=== PATIENT | male | born 1985 | race Caucasian/White ===

== ENCOUNTER 2016-12-03 16:30 | Emergency (ER) | payer OTHER ==
[~2016-12-03] VITALS: Ht 175.3 cm; Wt 106.5 kg
== END 2016-12-03 16:50 | disposition short-term general hospital (02) ==
LOC: ER 16:30
DX: S68.126A Partial traumatic metacarpophalangeal amputation of right little finger, initial encounter (principal); X50.9XXA Other and unspecified overexertion or strenuous movements or postures, initial encounter
CPT/HCPCS: J2270